=== PATIENT | female | born 1990 | race Caucasian/White ===

== ENCOUNTER 2019-05-26 15:38 | Outpatient (CLI) | payer OTHER ==
[~2019-05-26] VITALS: Ht 160 cm; Wt 91.4 kg
[2019-05-26] MEDS ORDERED: PRENTAB9 PO (16:29)
[2019-05-26] MEDS ORDERED: MAPA500T2 PO (16:29)
[2019-05-26] MEDS ORDERED: ASPI81TA85 PO (16:30)
[2019-05-26 16:35] VITALS: BP 106/65
--- NOTE | 2019-05-26 16:40 | IPNPDOC ---
Obstetrical Progress Note Date of Service May 26, 2019 Subjective 29yo at 34wks with Di/Di twings sent from clinic for repeat NST. Pt reports +FM, denies LOF/VB/CTX. NST in clinic overall reassuring, but difficulty keeping fetus' on the monitor and unable to elicit 2x 15x15 accels for reactive tracing. Objective O: VSS FHR Twin A: 140, moderate variability, +accels, no decels noted FHR Twin B: 145, moderate variability, +accels, no decels noted Assessment Heart Rate Tracing: Category I Tocometer Contractions: No Assessment and Plan Status: Reassuring Additional Comments A: 29yo at 34 weeks with Ashely twins, EDC [id number] Category I FHT, Reactive and reassuring P: Discharged home with appropriate 3rd trimester precautions f/u Saturday in clinic for APFT with SARAH SANCHEZ CNM May 26, 2019 16:40
== END 2019-05-26 16:54 | disposition home or self-care (01) ==
LOC: M LDO 15:38
PROVIDERS: ATTEND Registered Nurse Maternal Newborn
DX: O30.043 Twin pregnancy, dichorionic/diamniotic, third trimester (principal); Z3A.34 34 weeks gestation of pregnancy
CPT/HCPCS: 59025; G0378; G0463

== ENCOUNTER 2019-06-22 14:01 | Outpatient (CLI) | payer OTHER ==
[~2019-06-22] VITALS: Ht 152.4 cm; Wt 95.3 kg
[~2019-06-22 14:01] MED LIST: ASPI81TA85 PO; MAPA500T2 PO; PRENTAB9 PO
--- NOTE | 2019-06-22 16:19 | IPNPDOC ---
Text Note Date of Service The patient was seen on 06/22/19. NOTE patient is a 29 yo with di/di twins @ 37+6wks gestation with di/di twins gestation presents for scheduled NST. patient without concerns. denies lof/vb. +FM vitals: normal NAD abd: gravid, soft, nt fhtA: 145/mod rey/pos accel/no decel fhtB: 155/mod rey/pos accel/no decel toco: irregular ctx TAUS: SDP: 2.6cm/4.4cm FM X2 A/P Patient with di/di twins, reactive NST x2, normal DAIJA using SDP. return precautions given. patient scheduled for c/d on [id number]. NELSON COWART DO Jun 22, 2019 16:19
== END 2019-06-22 16:25 | disposition home or self-care (01) ==
LOC: M LDO 14:01
PROVIDERS: ATTEND Obstetrics & Gynecology
DX: Z36.89 Encounter for other specified antenatal screening (principal); O30.043 Twin pregnancy, dichorionic/diamniotic, third trimester; Z3A.28 28 weeks gestation of pregnancy
CPT/HCPCS: 59025; 76815; G0378; G0463

== ENCOUNTER 2019-06-25 05:22 | Inpatient (IN) | payer OTHER ==
--- NOTE | 2019-06-16 18:35 | HPE ---
DATE OF SCHEDULED ADMISSION: 06/25/2019 This lady is a 29-year-old 2, para 1, last menstrual period (LMP) is September 22, 2018, estimated date of confinement (EDC) is July 07, 2019, having a repeat section for dichorionic/diamniotic (di/di) twins. Her past history is in May 2015 at term, had a section (), a male, 7 pounds 2 ounces for distress. She has no known allergies. Presently taking vitamins and ASA 81 mg. Her past medical history is that she had chlamydia positive, test of cure was negative 02/06/2019. Her past surgical history is section and wisdom teeth. Her risk factors are di/di twins and previous section. Her lab work: Her blood group is O positive, HIV negative, hepatitis negative, RPR negative, rubella immune. Gonorrhea and chlamydia were negative. 1-hour glucose was 102 and GBS status is pending. On examination today, symphysis fundus height is 42 cm. heart tones: The twin right was 140, twin left was 143. Ultrasound indicated normal amniotic fluid indexes (AFIs) for twin A and twin B. Twin A on the right was a breech. Twin B on the left was vertex. Blood pressure today was 118/65, respirations are 18, pulse was 78, and she weighs 205 pounds. Her body mass index (BMI) was 26.4. The rest of the examination is unremarkable. She is normocephalic, atraumatic. Neck: Full range of motion. Pupils equal and reactive to light. No evidence of deep vein thrombosis (DVT), pulmonary embolism (PE), or superficial phlebitis. Chest is clear bilaterally to bases. No wheezes or rhonchi. No costovertebral angle (CVA) tenderness. Abdomen is soft. Four quadrant bowel sounds are noted. An incision was seen in the lower end of the abdomen. There is no rashes, lesions or pruritus. No arthralgia or myalgia. No complaint of joint pain. No complaint of cough, wheezes, shortness of breath or dyspnea on exertion. She is not bleeding. Neuro complete. She has no history of incontinence, urgency or frequency. No nausea, vomiting, diarrhea or constipation. She has no diabetic issues. Past gynecologic ([employer]) History: She has had no evidence of abnormal Pap smears. Past medical history and surgical history is unremarkable except for section and wisdom teeth. Family history is noncontributory. She does not smoke, drink or abuse drugs. She is . Good support systems and no domestic violence. We discussed the risks and benefits of section, including hemorrhage, infection, perforation of organs, , reoperation, remote possibility of blood transfusion, remote possibility of hysterectomy and life-threatening bleeding situations, remote possibility of laceration or fetuses ending up in the intensive care unit (NICU), also the risk of hematoma, scratches to the heads. After expressing understanding of the same, she signed the consent form. All questions were answered. We had a 40-minute discussion, and the patient is booked for a repeat section of di/di twins on June 25, 2019.
[~2019-06-25] VITALS: Ht 160 cm; Wt 94.0 kg
[2019-06-25] VITALS (7 sets, daily range): BP systolic 100–126; BP diastolic 50–75
[2019-06-25] MEDS ORDERED: ceFAZolin SOD 2 GM in IV 1 EA IV ONE (06:00)
[2019-06-25] MEDS ORDERED: ACETAMINOPHEN 650 MG SUPP PR ONE (06:00)
[2019-06-25] MEDS ORDERED: BUPIVACAINE HCL 0.25% 10 ML VIAL INFIL ONE (06:00)
[2019-06-25] MEDS ORDERED: BICITRA 30ML SOLN UDC PO ONE (06:00)
[2019-06-25] MEDS ORDERED: LR 1,000 ML IV ONE (06:00)
[2019-06-25 06:23] LABS: HEMATOCRIT 31.9 % (36.0-47.0); HEMOGLOBIN 10.4 g/dl (12.0-15.5); MEAN CORPUSCULAR HEMOGLOBIN 28.4 pg (27.0-33.0); MEAN CORPUSCULAR HGB CONC 32.6 g/dl (32.0-36.5); MEAN CORPUSCULAR VOLUME 87.2 fl (80.0-96.0); PLATELET COUNT, AUTOMATED 229 10^3/uL (150-450); RED BLOOD COUNT 3.66 10^6/uL (4.00-5.40); WHITE BLOOD COUNT 6.4 10^3/uL (4.0-10.0)
[2019-06-25] MEDS ORDERED: LR 1,000 ML IV SCH ×3 (07:00→10:54)
[2019-06-25] MEDS ORDERED: MORPHINE PRES-FREE INJ 10 MG/10 ML VIAL (J2274) As Ordered ONE (07:21)
[2019-06-25] MEDS ORDERED: ONDANSETRON 4MG/2ML VIAL (J2405) IV PRN ×2 (08:17→10:00)
[2019-06-25] MEDS ORDERED: NALBUPHINE HCL 10 MG/ML AMP (J2300) IV PRN ×2 (08:17→10:00)
[2019-06-25] MEDS ORDERED: NALOXONE INJ 0.4 MG/1 ML VIAL (J2310) IV PRN ×2 (08:17)
[2019-06-25] MEDS ORDERED: diphenhydrAMINE INJ 50MG/ML VIAL (J1200) IV PRN (08:17)
[2019-06-25] MEDS ORDERED: METOCLOPRAMIDE INJ 10MG/2ML VIAL (J2765) IV PRN ×3 (08:17→13:00)
[2019-06-25] MEDS ORDERED: PHENYLephrine HCL 500 MCG/5 ML (100MCG/ML) SYRINGE (J2370) As Ordered ONE (08:32)
[2019-06-25] MEDS ORDERED: KETOROLAC 60 MG/2 ML VIAL (J1885) As Ordered ONE (08:33)
[2019-06-25] MEDS ORDERED: OXYTOCIN INJ 10 UNITS/ML VIAL (J2590) As Ordered ONE (09:34)
[2019-06-25 09:44] LABS: CORD GAS ABE A -4.1; CORD GAS O2 SAT A 34.3 %; CORD GAS PCO2 A 43.7 mmHg; CORD GAS PH A 7.319 UNITS; CORD GAS PO2 A 17.3 mmHg; CORD GAS SBC A 19.8 MEQ/L; CORD GAS TCO2 A 23.3 MEQ/L
[2019-06-25 09:46] LABS: CORD GAS ABE V -4.3; CORD GAS HCO3 V 20.5 MEQ/L; CORD GAS O2 SAT V 82.5 %; CORD GAS PCO2 V 36.8 mmHg; CORD GAS PH V 7.364 UNITS; CORD GAS PO2 V 36.3 mmHg; CORD GAS SBC V 20.6 MEQ/L; CORD GAS TCO2 V 21.6 MEQ/L
[2019-06-25 09:48] LABS: CORD GAS ABE A -5.5; CORD GAS HCO3 A 22.1 MEQ/L; CORD GAS O2 SAT A 16.9 %; CORD GAS PCO2 A 51.1 mmHg; CORD GAS PH A 7.254 UNITS; CORD GAS PO2 A 13.3 mmHg; CORD GAS SBC A 18.2 MEQ/L; CORD GAS TCO2 A 23.7 MEQ/L
[2019-06-25 09:52] LABS: CORD GAS ABE V -3.2; CORD GAS HCO3 V 25.6 MEQ/L; CORD GAS O2 SAT V 32.6 %; CORD GAS PCO2 V 61.6 mmHg; CORD GAS PH V 7.236 UNITS; CORD GAS PO2 V 17.9 mmHg; CORD GAS SBC V 20.2 MEQ/L; CORD GAS TCO2 V 27.5 MEQ/L
[2019-06-25] MEDS ORDERED: fentaNYL 100 MCG/2 ML INJECTION (J3010) IV PRN (10:00)
[2019-06-25] MEDS ORDERED: PERCOCET 5MG/325MG TAB PO PRN ×2 (10:00→11:00)
[2019-06-25] MEDS ORDERED: OXYTOCIN 30 UNITS IN 0.9% NaCl 500ML IV BAG (J2590) As Ordered ONE (10:00)
[2019-06-25] MEDS ORDERED: LR 500 ML IV ONE (10:15)
[2019-06-25] MEDS ORDERED: ACETAMINOPHEN 500 MG TAB PO PRN (11:00)
[2019-06-25] MEDS ORDERED: MOM 30ML SUSPENSION UDC PO PRN (11:00)
[2019-06-25] MEDS ORDERED: DOCUSATE SODIUM 100 MG CAP PO PRN (11:00)
[2019-06-25] MEDS ORDERED: METHYLERGONOVINE MALEATE 0.2 MG TAB PO PRN (11:00)
[2019-06-25] MEDS ORDERED: RHOGAM 300 MCG (1500 IU) INJ (J2790) IM SCH (11:00)
[2019-06-25] MEDS ORDERED: MEASLES,MUMPS,RUBELLA VACCINE INJ (MMR-II) (90707) SC SCH (11:00)
[2019-06-25] MEDS ORDERED: ANUSOL HC CREAM 30GM TOP PRN (11:00)
[2019-06-25] MEDS ORDERED: OXYTOCIN INJ 10 UNITS/ML VIAL (J2590) IV ONE (11:00)
[2019-06-25] MEDS ORDERED: OXYTOCIN DRIP 30 UNITS in IV 1 EA IV SCH (11:00)
--- NOTE | 2019-06-25 12:09 | IPN ---
DATE: 06/25/2019 This lady and requested circumcision of their male infants, twin A and twin B. After discussing the risks and benefits of circumcision, the medical and nonmedical indications, the penile block and aftercare, expressed understanding of the penile block and aftercare, signed the consent form. We await the clearance by the wrapper stemmer hand.
--- NOTE | 2019-06-25 13:41 | RO ---
DATE OF PROCEDURE: 06/25/2019 PREOPERATIVE DIAGNOSES: Ashely twins. Twin A breech tamiko. Twin B vertex presenting. POSTOPERATIVE DIAGNOSES: Ashely I twins. Twin A was breech. Twin B was vertex. OPERATION PROPOSED: section. OPERATION PERFORMED: section. SURGEON: Juan Luis Mccartney MD MANAGER OF PRODUCT: Karon Brooks MD for retraction, extraction and visualization. ANESTHESIA: Spinal plus local anesthetic for intraperitoneal procedures. ESTIMATED BLOOD LOSS: 400 mL. After adequate time-out, prepped and draped in the supine position, Sorto catheter in the bladder draining clear urine. Appropriate antibiotics on board preoperatively. Acetaminophen suppository 1300 mg per rectum. A low Pfannenstiel incision was made two fingerbreadths above the symphysis pubis passing through abdominal layers securing hemostasis. Opening the peritoneal cavity, bladder was reflected well down. She had a very thin lower uterine segment. A low transverse incision was made, bulging membranes and AROM draining clear liqua. We delivered a live tamiko breech male infant weighing 2640 grams, 5 pounds 13 ounces scores of 3, 8 and 9 at 1, 5 and 10 minutes respectively. Arterial pH twin A 7.31, base excess -4.1, venous pH was 7.36, base excess of -4.3. Examination manually of the uterus, bulging membranes, twin B was vertex presenting. The head was brought down towards the lower segment and ARM was done draining clear liquor We delivered a live male twin B, vertex presenting 2270 grams, 5 pounds 0 ounces, scores of nine and ten at 1 and 5 minutes respectively. Arterial pH 7.25, base excess -5.5, venous pH 7.23, base excess -3.2. The placentas were manually removed, three-vessels in each cord. Membranes and tissues intact. Placentas were sent off to pathology under separate cover. Uterus contracted well down on Pitocin. The intrauterine aspect was swept clean with a dry sponge. The lower segment was identified and oversewn in two layers imbricating the second layer. Good hemostasis, reperitonealization was performed. With instrument and pad counts correct, both ovaries and tubes appeared to be normal. The uterus was still well contracted. Perineum was oversewn with a running stitch of #2-0 Vicryl. Then the fascia was closed with continuous Vicryl #0, #2-0 Vicryl for subcu and Dexon to the skin and subcuticular. Marcaine 0.25% 18 mL for incisional site. Gerlach and Telfa were applied. Uterus was still contracted well down and the patient was sent to recovery in good condition. MARICHUY
[2019-06-25] MEDS: KETOROLAC 30 MG/ML VIAL (J1885) IV SCH ×2 (15:32→20:45)
[2019-06-26 02:28] VITALS: BP 128/64
[2019-06-26] MEDS: KETOROLAC 30 MG/ML VIAL (J1885) IV SCH (03:23)
[2019-06-26 06:21] VITALS: BP 122/57
[2019-06-26 07:07] LABS: HEMATOCRIT 26.5 % (36.0-47.0); MEAN CORPUSCULAR HEMOGLOBIN 27.7 pg (27.0-33.0); MEAN CORPUSCULAR HGB CONC 31.3 g/dl (32.0-36.5); MEAN CORPUSCULAR VOLUME 88.3 fl (80.0-96.0); PLATELET COUNT, AUTOMATED 183 10^3/uL (150-450); WHITE BLOOD COUNT 7.4 10^3/uL (4.0-10.0)
[2019-06-26 07:12] LABS: HEMOGLOBIN 8.3 g/dl (12.0-15.5)
[2019-06-26] MEDS: PRENATAL VITAMINS CHEWABLE TABLET PO SCH (09:16)
--- NOTE | 2019-06-26 09:54 | IPN ---
DATE OF SERVICE: 06/25/2019 This lady is a 2, para 3, repeat section di-di I twins. Male twin A breech 2640 grams, 5 pounds 13 ounces, scores of 3, 8, and 9, arterial pH 7.31, base excess -4.1, venous pH 7.36, base excess -4.3. Twin B vertex, male 2270 grams, 5 pounds 0 ounces, scores of 9 and 10 at 1 and 5 minutes respectfully, arterial pH of 7.25, base excess -5.5, venous pH 7.23, base excess -3.2. Blood pressure today is 122/57, respirations are 18, pulse is 97, temperature is 98.4. Admitting hemoglobin 10.4, hematocrit 31.9 and platelets were 229. Day one hemoglobin and hematocrit are pending. She is doing well this morning, breast-feeding both twins. Twin B has low blood sugars and is presently being topped up with glucagon. We discussed phlebitis, cystitis, mastitis, endometritis and cellulitis, diet, exercise pain management, perineal breast and wound care. The patient is planning on having an IUCD, either Mirena or copper IUCD at her 6-week checkup. The rest examination is unremarkable. Normocephalic, atraumatic. Neck: Full range of motion. Pupils equal and reactive to light. Distal pulses symmetric. No evidence of DVT, PE or superficial phlebitis. Chest is clear bilaterally to the bases. No wheezes or rhonchi. No CVA tenderness. Abdomen is soft, uterus 2 below. Lochia is moderate. Incision is clean and dry. Four quadrant bowel sounds are noted. No urgency, frequency. No nausea, vomiting, diarrhea or constipation. No shortness of breath, dyspnea on exertion. In summary, we have a term gestation delivered by repeat section live twins male/male. Plans are for circumcision of twin A tomorrow, twin B once his sugars are stabilized and possibly discharge on Saturday.
[2019-06-26 10:00] VITALS: BP 144/62
[2019-06-26] MEDS ORDERED: IBUPROFEN 600 MG TAB PO PRN (11:00)
[2019-06-26] MEDS: IBUPROFEN 800 MG TAB PO PRN (13:32)
[2019-06-26 14:00] VITALS: BP 120/73
[2019-06-26 18:00] VITALS: BP 124/79
[2019-06-26] MEDS: PERCOCET 5MG/325MG TAB PO PRN (20:44)
[2019-06-26 22:05] VITALS: BP 133/80
[2019-06-27 02:27] VITALS: BP 132/80
[2019-06-27] MEDS: IBUPROFEN 800 MG TAB PO PRN ×3 (03:07→20:50)
[2019-06-27] MEDS: PERCOCET 5MG/325MG TAB PO PRN ×3 (03:07→20:50)
[2019-06-27 06:21] VITALS: BP 118/61
[2019-06-27] MEDS: PRENATAL VITAMINS CHEWABLE TABLET PO SCH (08:36)
[2019-06-27 10:00] VITALS: BP 124/74
[2019-06-27 18:00] VITALS: BP 132/77
[2019-06-28] MEDS: PERCOCET 5MG/325MG TAB PO PRN ×2 (04:08→10:00)
[2019-06-28 06:42] VITALS: BP 123/73
[2019-06-28] MEDS ORDERED: PROC1CRE5 TOP (09:52)
[2019-06-28] MEDS ORDERED: PERCOCET PO ×2 (09:52)
[2019-06-28] MEDS ORDERED: IBUP80TA PO (09:52)
[2019-06-28] MEDS ORDERED: DOCU100C16 PO (09:52)
[2019-06-28] MEDS: IBUPROFEN 800 MG TAB PO PRN (09:59)
[2019-06-28] MEDS: PRENATAL VITAMINS CHEWABLE TABLET PO SCH (10:00)
--- NOTE | 2019-06-29 12:40 | DSES ---
DATE OF ADMISSION: 06/25/2019 DATE OF DISCHARGE: 06/28/2019 The patient is a 29-year-old 2, para 3, admitted for repeat section for di-di twins, who delivered live twin male A breech presentation, Apgars 3, 8 and 9, 2440 grams or 5 pounds 13 ounces. Arterial pH 7.31, base excess -4.1, venous pH 7.36, base excess -4.3. Twin B male, vertex, 2270 grams, 5 pounds 0 ounces, Apgars of 9 and 10 at one and five minutes respectfully. Arterial pH 7.25, base excess -5.5; venous pH 7.32, base excess -3.2. On discharge, her hemoglobin was 8.3, hematocrit 26.5 and platelets were 183. She was asymptomatic. Her vital signs showed her blood pressure was 123/73, respirations 19, pulse 74, and temperature 98.1. We discussed phlebitis, cystitis, mastitis, endometritis and cellulitis; diet, exercise and pain management; perineal, breast and wound care. On discharge, she was dispensed medications and has a 2-week incision check and 6-week check. The rest of the examination unremarkable. Normocephalic, atraumatic. Neck full range of motion. Pupils equal and reactive to light. Distal pulses symmetric. No evidence of deep vein thrombosis (DVT), pulmonary embolism (PE) or superficial phlebitis. Chest is clear bilaterally at bases. No wheezes or rhonchi. No costovertebral angle (CVA) tenderness. Abdomen soft, uterus two below. Lochia is moderate. Four quadrant bowel sounds are noted. Incision is clean and dry. She is not complaining of any urgency, frequency, nausea, vomiting, diarrhea or constipation. Presently, breast-feeding. One of the twins is having difficulty with its blood sugars and now has difficulty with a 10% reduction of weight. The patient will have to supplement feeding. In summary, we have a twin gestation, dichorionic-diamniotic, delivered by repeat section. The patient discharged improved. Followup 2-week incision check and 6-week check at [facility].
== END 2019-06-28 13:50 | disposition home or self-care (01) | DRG 773 ==
LOC: M LDI 05:22 → M OBS 11:41
PROVIDERS: ADMIT Obstetrics & Gynecology; ATTEND Obstetrics & Gynecology
PROC: 10D00Z1 Extraction of Products of Conception, Low, Open Approach (ICD-10-PCS; principal; 2019-06-25 07:30)
DX: O34.211 Maternal care for low transverse scar from previous cesarean delivery (principal); Z37.0 Single live birth; Z3A.39 39 weeks gestation of pregnancy; O32.1XX0 Maternal care for breech presentation, not applicable or unspecified; O30.043 Twin pregnancy, dichorionic/diamniotic, third trimester; Z37.2 Twins, both liveborn